=== PATIENT | male | born 1980 | race Caucasian/White ===

== ENCOUNTER 2018-11-06 07:07 | Day surgery (SDC) | payer OTHER ==
[2018-11-06] MEDS ORDERED: LACTATED RINGERS 1,000 ML IV.SOLN IV ONE (08:48)
[2018-11-06] MEDS ORDERED: PROPOFOL 200 MG/20 ML VIAL IV ONE (08:48)
[2018-11-06] MEDS ORDERED: LIDOCAINE HCL 2% PF 100MG/5ML VIAL IJ ONE (08:48)
--- NOTE | 2018-11-06 12:31 | GI Report ---
REFERRING PHYSICIAN: JAMES Crespo LUG BREAKER AND WIRE PULLER: Francisco Brunson MD PROCEDURE MEDICATION: Propofol as per anesthesia. INDICATIONS: Patient is a 37-year-old man who has had long-standing reflux. He has trouble almost every day. He had some improvement with [id number] Zantac but it did not last very long. He denies dysphagia. He does not smoke or chew tobacco. He has had some weight gain. He is 5 feet 11 inches and weighs 230. Activity such as lifting may increase reflux. He does have some difficulty at nighttime. There has been no hematemesis or blood in the stool. He has had no abdominal surgeries. PROCEDURE PERFORMED: Endoscopy with biopsies. PROCEDURE: An [email or web address] video endoscope is passed through the esophagus under direct visualization. Patient does have some scarring at the distal esophagus. A couple of areas look suggestive of possible rings. Biopsies were taken at the end of the procedure for pathology. The patient's GE junction is lax. It does stay open. Fundus, body, and antrum of the stomach with mild gastritis. Biopsies in the antrum looking specifically for H. Pylori were taken. Duodenal bulb and first and second part of the duodenum exam were normal. The ampulla looked normal. Patient tolerated the procedure well. FINDINGS: 1. Distal esophagitis with some scarring. Biopsies taken. 2. Gastritis. Biopsies taken. 3. Lax GE junction. RECOMMENDATIONS: 1. Pending the biopsies, he needs to elevate his bed 3 inches. 2. Smaller meals. 3. A 10 to 15 pound weight loss would be beneficial. 4. Continue on the PPI rather than the H2 raj 40 mg daily before his first meal. 5. Take an antacid of choice, such as Gaviscon, at bedtime. 6. Further recommendations pending the biopsy results. [facility]
== END 2018-11-06 09:19 ==
LOC: OPSURG 07:07
PROVIDERS: ATTEND Internal Medicine Gastroenterology
DX: K21.0 Gastro-esophageal reflux disease with esophagitis (principal); K29.70 Gastritis, unspecified, without bleeding; K22.8 Other specified diseases of esophagus
CPT/HCPCS: 43239; J2001; J2704; J7120; S1016

== ENCOUNTER 2019-08-13 16:22 | Outpatient (CLI) | payer OTHER | END 2019-08-13 16:27 | LOC: LAB 16:22 | PROVIDERS: ATTEND Family Medicine | DX: Z13.29 Encounter for screening for other suspected endocrine disorder (principal) | CPT/HCPCS: 36415; 84443 ==